=== PATIENT | female | born 1960 | race American Indian/Alaskan Native ===

== ENCOUNTER 2017-11-06 09:29 | Day surgery (SDC) | payer OTHER, MEDICAID ==
[2017-11-06] MEDS ORDERED: LR 1,000 ML IV ONE (09:48)
[2017-11-06] MEDS ORDERED: LIDOCAINE 1% 2 ML INJ ID PRN (09:48)
[2017-11-06] MEDS ORDERED: fentaNYL 100 MCG/2 ML INJ IVP PRN (10:28)
[2017-11-06] MEDS ORDERED: ALBUTEROL 3 ML DEYVIAL IH PRN (10:28)
[2017-11-06] MEDS ORDERED: ONDANSETRON 4 MG/2 ML VIAL IVP PRN (10:28)
[2017-11-06] MEDS ORDERED: NALOXONE HCL 0.4 MG/ML INJ IVP PRN (10:28)
--- NOTE | 2017-11-06 10:28 | PDANEPAE ---
ANE History of Present Illness here for EGD ANE Past Medical History - Cardiovascular History Hx Hypertension: No Hx Arrhythmias: No Hx Chest Pain: No Hx Coronary Artery / Peripheral Vascular Disease: No Hx CHF / Valvular Disease: No Hx Palpitations: No Cardiovascular History Comment: BP runs low 115/65 average - Pulmonary History Hx COPD: No Hx Asthma/Reactive Airway Disease: No Hx Recent Upper Respiratory Infection: No Hx Oxygen in Use at Home: No Hx Sleep Apnea: No Sleep Apnea Screening Result - Last Documented: Negative - Neurologic History Hx Cerebrovascular Accident: No Hx Seizures: No Hx Dementia: No - Endocrine History Hx Diabetes: Yes Endocrine History Comment: IDDM - Renal History Hx Renal Disorders: No - Liver History Hx Hepatic Disorders: Yes Hepatic History Comment: LIVER TRANSPLANT 06/14/11. FOR (SAL) - Neurological & Psychiatric Hx Hx Neurological and Psychiatric Disorders: No - Cancer History Hx Cancer: No - Congenital Disorder History Hx Congenital Disorders: No - GI History Hx Gastrointestinal Disorders: Yes Gastrointestinal History Comment: REFLUX, PYLORIC STENOSIS,GASTROPARESIS - Other Health History Other Health History: GLAUCOMA - Chronic Pain History Chronic Pain: Yes (ABD PAIN) - Surgical History Prior Surgeries: EGD ANE Review of Systems Review of systems is: negative Review of Systems: - Exercise capacity METS (RN): 4 METS ANE Patient History - Allergies Allergies/Adverse Reactions: octreotide [From Sandostatin] Allergy (Verified 11/06/17 10:00) Other-Enter Comments - Home Medications Home medications: home medication list seen and reviewed Home Medications: Bydureon Pen 11/05/17 [Last Taken 11/04/17] Latanoprost 11/05/17 [Last Taken 11/05/17 20:00] Pantoprazole Sodium 11/05/17 [Last Taken 11/05/17 08:00] Ranitidine HCl 11/05/17 [Last Taken 11/05/17 20:00] Synthroid 11/05/17 [Last Taken 11/05/17 08:00] Tacrolimus 11/05/17 [Last Taken 11/05/17 20:00] Tresiba Flextouch U-100 11/05/17 [Last Taken 11/05/17 08:00] Zofran 11/05/17 [Last Taken 11/05/17 20:00] - NPO status NPO Status: no food or drink >8 hours - Smoking Hx Smoking Status: Never smoked - Family Anes Hx Family Hx Anesthesia Complications: none ANE Labs/Vital Signs - Labs Result Diagrams: 11/06/17 10:00 - Vital Signs Vital Signs: reviewed preoperatively; see RN documention for details Blood Pressure: 126/74 Heart Rate: 101 Respiratory Rate: 16 O2 Sat (%): 96 Height: 172.72 cm Weight: 86.183 kg
[2017-11-06] MEDS ORDERED: PROPOFOL/EMULSION 500 MG/50 ML BOTTLE IV ONE (10:50)
--- NOTE | 2017-11-06 10:54 | PDANEPAE ---
ANE History of Present Illness here for egd ANE Past Medical History - Cardiovascular History Hx Hypertension: No Hx Arrhythmias: No Hx Chest Pain: No Hx Coronary Artery / Peripheral Vascular Disease: No Hx CHF / Valvular Disease: No Hx Palpitations: No Cardiovascular History Comment: BP runs low 115/65 average - Pulmonary History Hx COPD: No Hx Asthma/Reactive Airway Disease: No Hx Recent Upper Respiratory Infection: No Hx Oxygen in Use at Home: No Hx Sleep Apnea: No Sleep Apnea Screening Result - Last Documented: Negative - Neurologic History Hx Cerebrovascular Accident: No Hx Seizures: No Hx Dementia: No - Endocrine History Hx Diabetes: Yes Endocrine History Comment: IDDM - Renal History Hx Renal Disorders: No - Liver History Hx Hepatic Disorders: Yes Hepatic History Comment: LIVER TRANSPLANT 06/14/11. FOR (SAL) - Neurological & Psychiatric Hx Hx Neurological and Psychiatric Disorders: No - Cancer History Hx Cancer: No - Congenital Disorder History Hx Congenital Disorders: No - GI History Hx Gastrointestinal Disorders: Yes Gastrointestinal History Comment: REFLUX, PYLORIC STENOSIS,GASTROPARESIS - Other Health History Other Health History: GLAUCOMA - Chronic Pain History Chronic Pain: Yes (ABD PAIN) - Surgical History Prior Surgeries: EGD ANE Review of Systems Review of systems is: negative Review of Systems: - Exercise capacity Exercise capacity: >=4 METS METS (RN): 4 METS ANE Patient History - Allergies Allergies/Adverse Reactions: octreotide [From Sandostatin] Allergy (Verified 11/06/17 10:00) Other-Enter Comments - Home Medications Home medications: home medication list seen and reviewed Home Medications: Bydureon Pen 11/05/17 [Last Taken 11/04/17] Latanoprost 11/05/17 [Last Taken 11/05/17 20:00] Pantoprazole Sodium 11/05/17 [Last Taken 11/05/17 08:00] Ranitidine HCl 11/05/17 [Last Taken 11/05/17 20:00] Synthroid 11/05/17 [Last Taken 11/05/17 08:00] Tacrolimus 11/05/17 [Last Taken 11/05/17 20:00] Tresiba Flextouch U-100 11/05/17 [Last Taken 11/05/17 08:00] Zofran 11/05/17 [Last Taken 11/05/17 20:00] - Smoking Hx Smoking Status: Never smoked - Family Anes Hx Family Hx Anesthesia Complications: none ANE Labs/Vital Signs - Labs Result Diagrams: 11/06/17 10:00 - Vital Signs Vital Signs: reviewed preoperatively; see RN documention for details Blood Pressure: 126/74 Heart Rate: 101 Respiratory Rate: 16 O2 Sat (%): 96 Height: 172.72 cm Weight: 86.183 kg ANE Physical Exam - Airway Neck exam: FROM Mallampati Score: Class 1 - Pulmonary Pulmonary: no respiratory distress - Cardiovascular Cardiovascular: regular rate and rhythym - ASA Status ASA Status: II ANE Anesthesia Plan Anesthesia Plan: general endotracheal anesthesia
--- NOTE | 2017-11-06 12:08 | GIREPORT ---
[facility] - Endoscopy Department Patient Name: Elma Padilla Procedure Date: 11/06/2017 10:50 AM Patient Type: Outpatient Attending MD/ ER Physician: Kenroy Moreau Procedure: Upper GI endoscopy Indications: Pyloric stenosis, For therapy of pyloric stenosis Providers: Mat Granados MD Referring MD: Valeriy Evangelista MD Medicines: General Anesthesia Complications: No immediate complications. Estimated blood loss: Minimal. Description of Procedure: After obtaining informed consent, the endoscope was passed under direct vision. Throughout the procedure, the patient's blood pressure, pulse, and oxygen saturations were monitored continuously. The Endoscope was intro duced through the mouth, and advanced to the third part of duodenum. The uppe r GI endoscopy was accomplished without difficulty. The patient tolerated th e procedure well. Findings: The examined esophagus was normal. A few diminutive sessile polyps with no bleeding and no stigmata of rec ent bleeding were found in the gastric fundus. The polyp was removed with a cold biopsy forceps. Polyp resection was incomplete. The resected tissue was retrieved. Estimated blood loss was minimal. A benign-appearing, intrinsic moderate stenosis was found at the pyloru s. This was traversed. A TTS dilator was passed through the scope. Dilatio n with a 12-13.5-15 mm, a 15-16.5-18 mm and an 18-19-20 mm pyloric balloo n dilator was performed. The dilation site was examined and showed comple te resolution of luminal narrowing. Estimated blood loss was minimal. The examined duodenum was normal. The exam was otherwise without abnormality. Estimated Blood Loss: Estimated blood loss was minimal. Post Op Diagnosis: - Normal esophagus. - A few gastric polyps. Incomplete resection. Resected tissue retrieved . - Gastric stenosis was found at the pylorus. Dilated. - Normal examined duodenum. - The examination was otherwise normal. Recommendation: - Await pathology results. - My office will call with the pathology result with 5-7 days. If you h ave not heard from my office by 06-06, do not assume the pathology is karlos l, please call [phone] to get the pathology results. - Repeat upper endoscopy in 4 weeks for retreatment. - Resume regular diet. - Continue present medications. - Use Protonix (pantoprazole) 40 mg PO daily. - Use Zantac (ranitidine) 300 mg PO at bedtime. - Discharge patient to home (ambulatory). - Return to primary care physician as previously scheduled. - Return to endoscopist in 6 weeks. - Thank you for allowing me to help in your patient's care. Do not hesi huizar to call with any questions. Attending Participation: I personally performed the entire procedure. Roberta Rivero M.D Mat Granados MD 11/06/2017 12:08:12 PM This report has been signed electronicallyMathew MD Roberta Number of Addenda: 0 Note Initiated On: 11/06/2017 10:50 AM [email or web address]
[2017-11-06 12:31] VITALS: BP 121/78
--- NOTE | 2017-11-06 12:49 | POSTANESTH ---
Post Anesthetic Evaluation Cardiovascular Status: Normal, Stable Respiratory Status: Normal, Stable Level of Consciousness/Mental Status: Can Participate in Eval Pain Control: Adequate, Prn Tx Ordered Nausea/Vomiting Control: Adequate, Prn Tx Ordered Complications Possibly Related to Anesthesia: None Noted
== END 2017-11-06 14:15 | disposition home or self-care (01) ==
LOC: FSGY 09:29
PROVIDERS: ATTEND Internal Medicine Gastroenterology
DX: K31.1 Adult hypertrophic pyloric stenosis (principal); K31.7 Polyp of stomach and duodenum
CPT/HCPCS: 43239; 43245; C1726; J2704

== ENCOUNTER 2017-11-15 18:27 | Observation (INO) | payer OTHER, MEDICAID ==
[2017-11-15] MEDS ORDERED: ONDANSETRON 4 MG/2 ML VIAL IVP ONE (19:15)
[2017-11-15] MEDS ORDERED: IBUPROFEN 800 MG TAB PO ONE (19:15)
[2017-11-15 19:23] LABS: PLATELET COUNT 330 10^3/uL (150-400)
--- NOTE | 2017-11-15 19:46 | EDPHY ---
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 She is on tacrolimus and other immunosuppressant drugs. She has been feeling somewhat poorly for the last 2 days and today developed fever and chills. After consulting with her transplant team she came to the emergency department, as recommended. She reports a mild headache. She denies cough, shortness of breath, chest pain, abdominal pain, diarrhea, dysuria, joint or muscle pain. She has chronic nausea with a history of gastroparesis and pyloric stenosis. Approximately 10 days ago she underwent dilatation of pylorus. REVIEW OF SYSTEMS: A ten point review of systems was performed and is negative with the exception of the items mentioned in the HPI. Past medical history: 1. Liver transplant/SAL 2. Pyloric stenosis 3. Gastroparesis 4. Incisional hernia Past surgical history: Liver transplant, tubal ligation Social history: The she is . She does not use tobacco or alcohol. General Appearance: Alert. Vital signs reviewed. Temperature 38.5 degrees at triage. Blood pressure 136/92. Heart rate 123. Eyes: Pupils equal and round, no conjunctival injection, no discharge. Anicteric. ENT, Mouth: Mucous membranes are moist, no oropharyngeal erythema or edema. Neck: No lymphadenopathy, supple. Respiratory: Lungs are clear to auscultation; no wheezes, rales, or rhonchi. Cardiovascular: Regular rate and rhythm; no murmur, rub, or gallop. Gastrointestinal: Abdomen is soft and nontender, no masses or organomegaly, bowel sounds normal. Incisional hernia, reducible. Skin: Warm and dry, no rashes on exposed skin, normal color. Back: Nontender to palpation over the thoracolumbar spine. No CVAT. Extremities: No lower extremity edema, no calf tenderness or swelling. Neurological: Alert and oriented. Moving all four extremities easily and equally. Cranial nerves II through XII are examined and are intact (visual acuity not tested). Strength is 5 over 5 bilaterally with testing of all major motor groups. Sensation is intact to light touch over all 4 extremities. Psychiatric: Normal affect. - Personal History Current Tetanus/Diphtheria Vaccine: Yes - Medical/Surgical History Hx Asthma: No Hx Chronic Respiratory Disease: No Hx Diabetes: Yes Hx Cardiac Disease: No Hx Renal Disease: No Hx Cirrhosis: No Hx Alcoholism: No Hx HIV/AIDS: No Other PMH: liver transplant /pyloric stenosis/glaucoma/ gastroparesis - Social History Smoking Status: Never smoked Constitutional: Initial Vital Signs Temperature (C) 38.5 C H 11/15/17 18:31 Heart Rate 123 H 11/15/17 18:31 Respiratory Rate 22 H 11/15/17 18:31 Blood Pressure 136/92 H 11/15/17 18:31 O2 Sat (%) 96 11/15/17 18:31 O2 Delivery Mode Room Air Allergies/Adverse Reactions: octreotide [From Sandostatin] Allergy (Verified 11/15/17 18:30) Other-Enter Comments Home Medications: Medication Instructions Recorded Canagliflozin [Invokana] 300 mg PO DAILY 11/15/17 Exenatide Microspheres [Bydureon 2 mg SQ Q7D 11/15/17 Pen] Insulin Degludec [Tresiba 60 unit SQ DAILY 11/15/17 Flextouch U-100] Latanoprost 0.005% [Xalatan 0.005% 1 drops EACHEYE HS 11/15/17 (*)] Levothyroxine [Synthroid 50 mcg 50 mcg PO DAILY06 11/15/17 (*)] Ondansetron Odt [Zofran Odt 4 mg 4 mg PO Q6 11/15/17 (*)] Pantoprazole Sodium [Protonix 40mg 40 mg PO DAILY 11/15/17 (*)] Ranitidine HCl 300 mg PO HS 11/15/17 Tacrolimus [Prograf] 1 mg PO BID 11/15/17 Medical Decision Making ED Course/Re-evaluation: 57-year-old immunocompromised female, status post liver transplant in 2010. She presents with fever and chills. On presentation she meets screening criteria for sepsis. Her lactic acid is 1.7, she does not have severe sepsis. She received 2 L of IV fluid in the emergency department with a decrease in her heart rate to 100. She was given ibuprofen and defervesced. White blood cell count is elevated, over 13,000. She has not been hypotensive. She does not have hypoxia, tachypnea, cough, or shortness of breath. I note that a chest x-ray was not obtained. Her lungs are clear to auscultation. She appears to have a urinary tract infection with leukocyte esterase, 15-25 white blood cells, and trace bacteria on her urinalysis. Urine culture has been ordered. No CVA tenderness. Blood cultures have been done. She was given 1 g IV ceftriaxone in the emergency department. She underwent serial evaluations while in the emergency department. She did not deteriorate. She remained alert and appropriate. Differential Diagnosis: Fever in adults including but not limited to pneumonia, urinary tract infection , viral syndrome, and influenza. - Data Points Laboratory Results: Laboratory Results 11/15/17 18:55 11/15/17 18:55 11/15/17 11/15/17 11/15/17 20:10 20:00 18:55 WBC RBC Hgb Hct MCV MCH MCHC RDW Plt Count MPV Neut % (Auto) Lymph % (Auto) [place] % (Auto) Eos % (Auto) Baso % (Auto) Nucleat RBC Rel Count Absolute Neuts (auto) Absolute Lymphs (auto) Absolute Monos (auto) Absolute Eos (auto) Absolute Basos (auto) Absolute Nucleated RBC Immature Gran % Immature Gran # VBG Lactic Acid 1.7 mmol/L mmol/L (0.7-2.1) Sodium 140 mEq/L mEq/L (135-145) Potassium 4.2 mEq/L mEq/L (3.3-5.0) Chloride 103 mEq/L mEq/L (97-110) Carbon Dioxide 23 mEq/l mEq/l (22-31) Anion Gap 14 mEq/L mEq/L (8-16) BUN 14 mg/dL mg/dL (7-23) Creatinine 1.1 mg/dL H mg/dL (0.6-1.0) Estimated GFR 51 Glucose 101 mg/dL H mg/dL (70-100) Calcium 9.0 mg/dL mg/dL (8.5-10.4) Total Bilirubin 0.9 mg/dL mg/dL (0.1-1.4) Conjugated Bilirubin 0.5 mg/dL mg/dL (0.0-0.5) Unconjugated Bilirubin 0.4 mg/dL mg/dL (0.0-1.1) AST 19 IU/L IU/L (14-46) ALT 37 IU/L IU/L (9-52) Alkaline Phosphatase 88 IU/L IU/L (38-126) Total Protein 7.5 g/dL g/dL (6.3-8.2) Albumin 4.0 g/dL g/dL (3.5-5.0) Lipase 60 IU/L IU/L (23-300) Urine Color YELLOW Urine Appearance HAZY Urine pH 6.0 (5.0-7.5) Ur Specific [place] 1.014 (1.002-1.030) Urine Protein NEGATIVE (NEGATIVE) Urine Ketones NEGATIVE (NEGATIVE) Urine Blood NEGATIVE (NEGATIVE) Urine Nitrate NEGATIVE (NEGATIVE) Urine Bilirubin NEGATIVE (NEGATIVE) Urine Urobilinogen NEGATIVE EU EU (0.2-1.0) Ur Leukocyte Esterase 3+ H (NEGATIVE) Urine RBC 5-10 /hpf H /hpf (0-3) Urine WBC 15-25 /hpf H /hpf (0-3) Ur Epithelial Cells 1+ /lpf /lpf (NONE-1+) Urine Bacteria TRACE /hpf H /hpf (NONE SEEN) Urine Mucus TRACE /lpf /lpf (NONE-1+) Urine Glucose 3+ H (NEGATIVE) 11/15/17 18:55 WBC 13.75 10^3/uL H 10^3/uL (3.80-9.50) RBC 4.85 10^6/uL 10^6/uL (4.18-5.33) Hgb 14.8 g/dL g/dL (12.6-16.3) Hct 44.0 % % (38.0-47.0) MCV 90.7 fL fL (81.5-99.8) MCH 30.5 pg pg (27.9-34.1) MCHC 33.6 g/dL g/dL (32.4-36.7) RDW 14.0 % % (11.5-15.2) Plt Count 330 10^3/uL 10^3/uL (150-400) MPV 8.7 fL fL (8.7-11.7) Neut % (Auto) 83.2 % H % (39.3-74.2) Lymph % (Auto) 10.0 % L % (15.0-45.0) [place] % (Auto) 4.9 % % (4.5-13.0) Eos % (Auto) 1.2 % % (0.6-7.6) Baso % (Auto) 0.2 % L % (0.3-1.7) Nucleat RBC Rel Count 0.0 % % (0.0-0.2) Absolute Neuts (auto) 11.43 10^3/uL H 10^3/uL (1.70-6.50) Absolute Lymphs (auto) 1.38 10^3/uL 10^3/uL (1.00-3.00) Absolute Monos (auto) 0.68 10^3/uL 10^3/uL (0.30-0.80) Absolute Eos (auto) 0.16 10^3/uL 10^3/uL (0.03-0.40) Absolute Basos (auto) 0.03 10^3/uL 10^3/uL (0.02-0.10) Absolute Nucleated RBC 0.00 10^3/uL 10^3/uL (0-0.01) Immature Gran % 0.5 % % (0.0-1.1) Immature Gran # 0.07 10^3/uL 10^3/uL (0.00-0.10) VBG Lactic Acid Sodium Potassium Chloride Carbon Dioxide Anion Gap BUN Creatinine Estimated GFR Glucose Calcium Total Bilirubin Conjugated Bilirubin Unconjugated Bilirubin AST ALT Alkaline Phosphatase Total Protein Albumin Lipase Urine Color Urine Appearance Urine pH Ur Specific [place] Urine Protein Urine Ketones Urine Blood Urine Nitrate Urine Bilirubin Urine Urobilinogen Ur Leukocyte Esterase Urine RBC Urine WBC Ur Epithelial Cells Urine Bacteria Urine Mucus Urine Glucose Medications Given: Discontinued Medications Ceftriaxone Sodium/Dextrose (Rocephin 1 Gm (Premix)) 50 mls @ 100 mls/hr IV EDNOW ONE PRN Reason: Protocol Stop: 11/15/17 21:28 Last Admin: 11/15/17 21:19 Dose: 50 mls Ibuprofen (Motrin) 800 mg PO EDNOW ONE Stop: 11/15/17 19:16 Last Admin: 11/15/17 19:20 Dose: 800 mg Ondansetron HCl (Zofran) 4 mg IVP EDNOW ONE Stop: 11/15/17 19:16 Last Admin: 11/15/17 19:20 Dose: 4 mg Departure - Departure Disposition: [facility] Acute Clinical Impression: Urinary tract infection Qualifiers: Urinary tract infection type: acute cystitis Hematuria presence: with hematuria Qualified Code(s): N30.01 - Acute cystitis with hematuria Condition: Fair
[2017-11-15] MEDS ORDERED: ONDANSETRON 4 MG/2 ML VIAL IVP PRN (22:14)
[2017-11-15] MEDS ORDERED: ONDANSETRON DISINTEGRATING 4 MG TAB PO PRN (22:14)
[2017-11-15] MEDS ORDERED: ACETAMINOPHEN 500 MG TAB PO PRN (22:14)
[2017-11-15] MEDS ORDERED: LATANOPROST 0.005% 2.5 ML OPHT DROPS EACHEYE SCH (23:15)
[2017-11-15] MEDS: TACROLIMUS 1 MG CAP PO SCH (23:44)
[2017-11-15] MEDS ORDERED: FAMOTIDINE 20 MG TAB PO SCH (23:45)
--- NOTE | 2017-11-16 01:36 | PDGENHP ---
History and Physical - Chief Complaint Fever - History of Present Illness 57 yo F w/ hx of liver failure s/p transplant and DM presents with fever. Patient has had fatigue for 2-3 days followed by fever and chills on the day of admission. She has also noticed nasal congestion; denies other localizing symptoms including all urinary findings. Of note, her daughter and granddaughter have both been ill with viral respiratory illnesses over the last few weeks. In the ED her CXR showed likely bronchitis and her UA was notable for pyuria. She is being admitted for observation noting immunosuppressed status. History Information - Allergies/Home Medication List Allergies/Adverse Reactions: octreotide [From Sandostatin] Allergy (Verified 11/15/17 18:30) Other-Enter Comments Home Medications: Canagliflozin [Invokana] 300 mg PO DAILY 11/15/17 [Last Taken 11/15/17] Exenatide Microspheres [Bydureon Pen] 2 mg SQ Q7D 11/15/17 [Last Taken 11/12/17] Insulin Degludec [Tresiba Flextouch U-100] 60 unit SQ DAILY 11/15/17 [Last Taken 11/15/17] Latanoprost 0.005% [Xalatan 0.005% (*)] 1 drops EACHEYE HS 11/15/17 [Last Taken 11/14/17] Levothyroxine [Synthroid 50 mcg (*)] 50 mcg PO DAILY06 11/15/17 [Last Taken ] Ondansetron Odt [Zofran Odt 4 mg (*)] 4 mg PO Q6 11/15/17 [Last Taken 11/15/17 17:00] Pantoprazole Sodium [Protonix 40mg (*)] 40 mg PO DAILY 11/15/17 [Last Taken ] Ranitidine HCl 300 mg PO HS 11/15/17 [Last Taken 11/14/17] Tacrolimus [Prograf] 1 mg PO BID 11/15/17 [Last Taken 11/15/17] I have personally reviewed and updated: family history, medical history - Past Medical History diabetes type 2 Additional medical history: 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 GERD. Gastroparesis. Hypothyroidism - Surgical History Additional surgical history: Liver transplant - Family History Additional family history: Daughter has ETOH cirrhosis - Social History Smoking Status: Never smoked Review of Systems Review of Systems: ROS: 10pt was reviewed & negative except for what was stated in HPI & below Physical Exam Physical Exam: Temp Pulse Resp BP Pulse Ox 36.8 C 88 16 101/56 L 94 11/16/17 00:32 11/16/17 00:32 11/16/17 00:32 11/16/17 00:32 11/16/17 00:32 Constitutional: no apparent distress, not in pain Eyes: PERRL, EOMI Ears, Nose, Mouth, Throat: moist mucous membranes, no oral mucosal ulcers Cardiovascular: regular rate and rhythym, no murmur, rub, or gallop Respiratory: no respiratory distress, no rales or rhonchi Gastrointestinal: normoactive bowel sounds, soft, non-tender abdomen Skin: warm, normal color Musculoskeletal: full muscle strength, no muscle tenderness Neurologic: AAOx3, CN II-XII Intact Psychiatric: interacting appropriately, not anxious Lab Data & Imaging Review 11/15/17 18:55 11/15/17 18:55 WBC 13.75 10^3/uL (3.80-9.50) H 11/15/17 18:55 RBC 4.85 10^6/uL (4.18-5.33) 11/15/17 18:55 Hgb 14.8 g/dL (12.6-16.3) 11/15/17 18:55 Hct 44.0 % (38.0-47.0) 11/15/17 18:55 MCV 90.7 fL (81.5-99.8) 11/15/17 18:55 MCH 30.5 pg (27.9-34.1) 11/15/17 18:55 MCHC 33.6 g/dL (32.4-36.7) 11/15/17 18:55 RDW 14.0 % (11.5-15.2) 11/15/17 18:55 Plt Count 330 10^3/uL (150-400) 11/15/17 18:55 MPV 8.7 fL (8.7-11.7) 11/15/17 18:55 Neut % (Auto) 83.2 % (39.3-74.2) H 11/15/17 18:55 Lymph % (Auto) 10.0 % (15.0-45.0) L 11/15/17 18:55 [place] % (Auto) 4.9 % (4.5-13.0) 11/15/17 18:55 Eos % (Auto) 1.2 % (0.6-7.6) 11/15/17 18:55 Baso % (Auto) 0.2 % (0.3-1.7) L 11/15/17 18:55 Nucleat RBC Rel Count 0.0 % (0.0-0.2) 11/15/17 18:55 Absolute Neuts (auto) 11.43 10^3/uL (1.70-6.50) H 11/15/17 18:55 Absolute Lymphs (auto) 1.38 10^3/uL (1.00-3.00) 11/15/17 18:55 Absolute Monos (auto) 0.68 10^3/uL (0.30-0.80) 11/15/17 18:55 Absolute Eos (auto) 0.16 10^3/uL (0.03-0.40) 11/15/17 18:55 Absolute Basos (auto) 0.03 10^3/uL (0.02-0.10) 11/15/17 18:55 Absolute Nucleated RBC 0.00 10^3/uL (0-0.01) 11/15/17 18:55 Immature Gran % 0.5 % (0.0-1.1) 11/15/17 18:55 Immature Gran # 0.07 10^3/uL (0.00-0.10) 11/15/17 18:55 VBG Lactic Acid 1.7 mmol/L (0.7-2.1) 11/15/17 20:10 Sodium 140 mEq/L (135-145) 11/15/17 18:55 Potassium 4.2 mEq/L (3.3-5.0) 11/15/17 18:55 Chloride 103 mEq/L (97-110) 11/15/17 18:55 Carbon Dioxide 23 mEq/l (22-31) 11/15/17 18:55 Anion Gap 14 mEq/L (8-16) 11/15/17 18:55 BUN 14 mg/dL (7-23) 11/15/17 18:55 Creatinine 1.1 mg/dL (0.6-1.0) H 11/15/17 18:55 Estimated GFR 51 11/15/17 18:55 Glucose 101 mg/dL (70-100) H 11/15/17 18:55 Calcium 9.0 mg/dL (8.5-10.4) 11/15/17 18:55 Total Bilirubin 0.9 mg/dL (0.1-1.4) 11/15/17 18:55 Conjugated Bilirubin 0.5 mg/dL (0.0-0.5) 11/15/17 18:55 Unconjugated Bilirubin 0.4 mg/dL (0.0-1.1) 11/15/17 18:55 AST 19 IU/L (14-46) 11/15/17 18:55 ALT 37 IU/L (9-52) 11/15/17 18:55 Alkaline Phosphatase 88 IU/L (38-126) 11/15/17 18:55 Total Protein 7.5 g/dL (6.3-8.2) 11/15/17 18:55 Albumin 4.0 g/dL (3.5-5.0) 11/15/17 18:55 Lipase 60 IU/L (23-300) 11/15/17 18:55 Procalcitonin 0.09 ng/mL (0.02-0.10) 11/15/17 23:26 Urine Color YELLOW 11/15/17 20:00 Urine Appearance HAZY 11/15/17 20:00 Urine pH 6.0 (5.0-7.5) 11/15/17 20:00 Ur Specific [place] 1.014 (1.002-1.030) 11/15/17 20:00 Urine Protein NEGATIVE (NEGATIVE) 11/15/17 20:00 Urine Ketones NEGATIVE (NEGATIVE) 11/15/17 20:00 Urine Blood NEGATIVE (NEGATIVE) 11/15/17 20:00 Urine Nitrate NEGATIVE (NEGATIVE) 11/15/17 20:00 Urine Bilirubin NEGATIVE (NEGATIVE) 11/15/17 20:00 Urine Urobilinogen NEGATIVE EU (0.2-1.0) 11/15/17 20:00 Ur Leukocyte Esterase 3+ (NEGATIVE) H 11/15/17 20:00 Urine RBC 5-10 /hpf (0-3) H 11/15/17 20:00 Urine WBC 15-25 /hpf (0-3) H 11/15/17 20:00 Ur Epithelial Cells 1+ /lpf (NONE-1+) 11/15/17 20:00 Urine Bacteria TRACE /hpf (NONE SEEN) H 11/15/17 20:00 Urine Mucus TRACE /lpf (NONE-1+) 11/15/17 20:00 Urine Glucose 3+ (NEGATIVE) H 11/15/17 20:00 Imaging Review: Imaging Impressions Chest X-Ray 11/15/17 21:50 Impression: 1. Mild bronchitis/airways disease. 2. No definite focal pneumonia. Visualized and Interpreted Chest x-ray results: Yes Chest X-Ray results: no infiltrate Assessment & Plan Assessment: 57 yo F w/ hx of liver transplant presents with a fever. Plan: 1. Fever - Most likely this represents viral URI noting CXR w/ bronchitis and multiple sick contacts. UA is mildly infectious appearing but she denies symptoms of this. 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 - Continue tacrolimus 3. IDDM - Takes insulin degludec 60 units q AM as well as Invokana. - Will continue home regimen 4. GERD - Continue H2RB 5. Hypothyroid - On LTX Diet - Regular Code - Full Ppx - LMWH Dispo - Admit under observation status, case discussed with Dr. Turner
[2017-11-16 05:27] LABS: PLATELET COUNT 263 10^3/uL (150-400)
[2017-11-16] MEDS ORDERED: LEVOTHYROXINE 50 MCG TAB PO SCH (06:00)
--- NOTE | 2017-11-16 08:45 | HOSPPROG ---
Hospitalist Progress Note Assessment/Plan: 7 yo F w/ hx of liver transplant presents with a fever. Plan: 1. Fever - Most likely this represents viral URI noting CXR w/ bronchitis and multiple sick contacts. UA is mildly infectious appearing but she denies symptoms of this. 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 - Continue tacrolimus 3. IDDM - Takes insulin degludec 60 units q AM as well as Invokana. - Will continue home regimen 4. GERD - Continue H2RB 5. Hypothyroid - On LTX Diet - Regular Code - Full Ppx - LMWH Dispo - Admit under observation status, case discussed with Dr. Turner Objective: Vital Signs Temp Pulse Resp BP Pulse Ox 98.7 F 76 16 109/73 95 11/16/17 07:34 11/16/17 07:34 11/16/17 07:34 11/16/17 07:34 11/16/17 07:34 Microbiology 11/15/17 23:45 Respiratory Panel (PCR) - Final Nasal, Sinus - Swab No Organism Detected Laboratory Results 11/16/17 04:15 11/16/17 04:15 ICD10 Worksheet Patient Problems: Problems Problem Status Onset Urinary tract infection Acute
[2017-11-16] MEDS ORDERED: PANTOPRAZOLE SODIUM 40 MG TAB PO SCH (09:00)
[2017-11-16] MEDS ORDERED: ENOXAPARIN 40 MG/0.4 ML SYR SC SCH (09:00)
[2017-11-16] MEDS: TACROLIMUS 1 MG CAP PO SCH (09:12)
[2017-11-16] MEDS: Insulin Degludec [Tresiba Flextouch U-100] 60 UNIT SQ SCH ×2 (09:12→09:17)
[2017-11-16] MEDS ORDERED: PNEUMOCOCCAL 0.5ML VACCINE VIAL IM ONE (10:59)
[2017-11-16 11:32] VITALS: BP 126/84
--- NOTE | 2017-11-16 15:31 | ASMTLACE ---
LACE Length of stay for Answers: Less than 1 day current admission Acuity / Level of Answers: No Care: Did the patient have an inpatient admission? Comorbidities - select Answers: Diabetes (uncontrolled or all that apply controlled) Moderate or severe liver or renal disease Other Notes: SAL cirrhosis, s/p luda er transplant # of Emergency department Answers: 1-2 visits in the last 6 months Score: 7 Date Signed: 11/16/2017 03:30 PM Electronically Signed By:Shey Cunningham RN
--- NOTE | 2017-11-16 15:36 | ASDISCHSUM ---
Discharge Information Plan Status:Home with No Needs Medically Cleared to Leave:11/16/2017 Discharge Date:11/16/2017 12:47 PM CM D/C Disposition:Home, Routine, Self-Care ADT D/C Disposition:Home, Routine, Self-Care Projected Discharge Date:11/16/2017 12:47 PM Transportation at D/C:Family Discharge Delay Reason: Follow-Up Date:11/16/2017 12:47 PM Discharge Slot:2 - 12:01 pm - 18:00 pm Final Diagnosis:Fever, URI, bronchitis, DM type 2, s/p liver transplant, liver failure sec to SAL c irrhosis, GERD, hypothyroid, gastroparesis Placement Information Patient Contact Information Contact Name:ANGELICA Relationship:Daughter Address: Work Phone: City: [facility] Phone: [facility]/[employer] Code: Email: Financial Information Financial Class:Medicare Primary Plan Desc:MEDICARE OUTPATIENT Primary Plan Number:[id number] Secondary Plan Desc:MEDICAID [place] Secondary Plan Number:[id number] Assessment Information LACE LACE Length of stay for Answers: Less than 1 day current admission Acuity / Level of Answers: No Care: Did the patient have an inpatient admission? Comorbidities - select Answers: Diabetes (uncontrolled or all that apply controlled) Moderate or severe liver or renal disease Other Notes: SAL cirrhosis, s/p luda er transplant # of Emergency department Answers: 1-2 visits in the last 6 months Score: 7 Date Signed: 11/16/2017 03:30 PM Electronically Signed By:Shey Cunningham RN [facility] Progress Note CM Note CM Note Notes: Pt admitted for fever, URI, possible bronchitis. History includes liver failure secondary to SAL cirrhosis with liver transplant, DM type 2, GERD, gastroparesis, hypothyroid. Pt lives alone; daughter involved in care. Pt to discharge home independently today with family support and no identified needs. No IM or QUEVEDO signed, admission <24 hrs. Pt to follow up as directed. CM available for any further issues or concerns. Discharge Plan: Home independently with family support Date Signed: 11/16/2017 03:34 PM Electronically Signed By:Shey Cunningham RN Intervention Information
--- NOTE | 2017-11-16 20:09 | GDS ---
[f rep st] DISCHARGE SUMMARY DISCHARGE DIAGNOSES: 1. Fever with unremarkable testing in this admission and resolution of fever at time of discharge. 2. History of liver transplant. 3. History of type 2 diabetes mellitus. 4. History of gastroesophageal reflux disease. 5. History of gastroparesis. 6. History of hypothyroidism. PROCEDURES: None. BRIEF HISTORY: Please see dictated H and P by Dr. Solomon for complete details. In brief, the p atkhurram is a 57-year-old female status post liver transplant and history of type 2 diabetes mellitus, who presented with a fever. She reports 2-3 days of fever and chills prior to admission. She had jolley d some sick contacts with her daughter and granddaughter who both had respiratory illnesses. Chest x -ray showed possible bronchitis and her UA had some pyuria. She was being admitted for im munosuppressed status. Her respiratory panel is negative. Her urine culture shows gram-negative mary lactose silk trimmer of 2 colony types with low counts. Her blood cultures are pending. Her white blo od cell count is only mildly elevated. Her VBG for lactic acid is low. Her procalcitonin is 0.09. PHYSICAL EXAM: VITAL SIGNS: On day of discharge, blood pressure 126/84, heart rate of 90, respirati ons 17, O2 saturation 96% on room air, temp of 98.6 degrees Fahrenheit. GENERAL: She is a pleasant female in no apparent distress. HEENT: Normocephalic, atraumatic. EYES: PERRL. HEART: Regular r ate and rhythm. SKIN: Warm and dry. PSYCH: Normal mood and affect. LABORATORY DATA: BMP with sodium 143, potassium 4.2, chloride 112, CO2 20, BUN 12, creatinine 1, glu cose 88. CBC with WBC 11.47, hemoglobin 12.1, hematocrit 37.2, platelet count of 263. UA with 3+ ur ine leukocyte esterase, trace bacteria. Results pending: Final results of preliminary urine culture and blood culture are pending. DISCHARGE MEDICATIONS: Please see med reconciliation. FOLLOWUP INSTRUCTIONS: Follow up with Dr. Evangelista, primary care, for results of recent testing. /[id number]/MODL
== END 2017-11-16 12:47 | disposition home or self-care (01) ==
LOC: F3N 22:45
PROVIDERS: ADMIT Internal Medicine; ATTEND Internal Medicine
DX: R50.9 Fever, unspecified (principal); E11.9 Type 2 diabetes mellitus without complications; K21.9 Gastro-esophageal reflux disease without esophagitis; K31.84 Gastroparesis; I10 Essential (primary) hypertension; Z94.4 Liver transplant status
CPT/HCPCS: 71046; 90732; G0009; G0378; J0696; J2405; J7507; 96374; J1650

== ENCOUNTER 2017-12-05 10:12 | Day surgery (SDC) | payer OTHER, MEDICAID ==
[2017-12-05] MEDS ORDERED: LR 1,000 ML IV ONE (10:31)
--- NOTE | 2017-12-05 12:13 | PDGENHP ---
History & Physical Chief Complaint: pyloric stenosis History of Present Illness: hx of acquired pyloric stenosis s/p egd and dilation Pertinent Past, Social, Family History: no tobacco. no alcohol. fhx - dad esophageal cancer, no colon cancer Relevant Physical Exam: A+Ox3. CTA. +BS, soft, non tender Cardiorespiratory Assessment: class 3
--- NOTE | 2017-12-05 12:21 | PDGENHP ---
History & Physical Chief Complaint: gastroparesis with aabdo pain and n/v History of Present Illness: hx gastropareis responded to BOTOX injexction pylorus Pertinent Past, Social, Family History: no tobacco. alcohol twice per month. Fhx - no cancer colo, aunt with Crohn's Relevant Physical Exam: A+Ox3. CTA. S1S2. +BS, soft epi tenderness Cardiorespiratory Assessment: class 2
--- NOTE | 2017-12-05 12:33 | PDANEPAE ---
ANE History of Present Illness h/o pyloric stenosis here for EGD ANE Past Medical History - Cardiovascular History Hx Hypertension: No Hx Arrhythmias: No Hx Chest Pain: No Hx Coronary Artery / Peripheral Vascular Disease: No Hx CHF / Valvular Disease: No Hx Palpitations: No Cardiovascular History Comment: BP runs low - Pulmonary History Hx COPD: No Hx Asthma/Reactive Airway Disease: No Hx Recent Upper Respiratory Infection: No Hx Oxygen in Use at Home: No Hx Sleep Apnea: No Sleep Apnea Screening Result - Last Documented: Negative - Neurologic History Hx Cerebrovascular Accident: No Hx Seizures: No Hx Dementia: No - Endocrine History Hx Diabetes: Yes Endocrine History Comment: IDDM - Renal History Hx Renal Disorders: Yes Renal History Comment: UTI 10/2017 - Liver History Hx Hepatic Disorders: Yes Hepatic History Comment: LIVER TRANSPLANT 06/14/11. FOR (SAL) POST IDDM - Neurological & Psychiatric Hx Hx Neurological and Psychiatric Disorders: No - Cancer History Hx Cancer: No - Congenital Disorder History Hx Congenital Disorders: No - GI History Hx Gastrointestinal Disorders: Yes Gastrointestinal History Comment: REFLUX, PYLORIC STENOSIS,GASTROPARESIS - Other Health History Other Health History: GLAUCOMA - Chronic Pain History Chronic Pain: Yes (ABD PAIN) - Surgical History Prior Surgeries: EGD WITH DILATION AND BX 11/06/17. LIVER TRANSPLANT 2010 FOR SAL. EGD ANE Review of Systems Review of Systems: - Exercise capacity Exercise capacity: >=4 METS ANE Patient History - Allergies Allergies/Adverse Reactions: octreotide [From Sandostatin] Allergy (Verified 11/15/17 18:30) Other-Enter Comments - Home Medications Home Medications: Canagliflozin [Invokana] 300 mg PO DAILY 11/15/17 [Last Taken 11/15/17] Exenatide Microspheres [Bydureon Pen] 2 mg SQ Q7D 11/15/17 [Last Taken 12/02/17] Insulin Degludec [Tresiba Flextouch U-100] 60 unit SQ DAILY 11/15/17 [Last Taken 12/04/17] Latanoprost 0.005% [Xalatan 0.005% (*)] 1 drops EACHEYE HS 11/15/17 [Last Taken 12/04/17] Levothyroxine [Synthroid 50 mcg (*)] 50 mcg PO DAILY06 11/15/17 [Last Taken ] Ondansetron Odt [Zofran Odt 4 mg (*)] 4 mg PO Q6 11/15/17 [Last Taken 1 Week Ago ~11/28/17] Pantoprazole Sodium [Protonix 40mg (*)] 40 mg PO DAILY 11/15/17 [Last Taken ] Ranitidine HCl 300 mg PO HS 11/15/17 [Last Taken 12/04/17] Tacrolimus [Prograf] 1 mg PO BID 11/15/17 [Last Taken 12/05/17] - NPO status NPO Since - Liquids (Date): 12/05/17 NPO Since - Liquids (Time): 07:00 NPO Since - Solids (Date): 12/04/17 NPO Since - Solids (Time): 12:00 - Anes Hx Anes Hx: no prior problems - Smoking Hx Smoking Status: Never smoked - Alcohol Use Alcohol Use: None - Family Anes Hx Family Anes Hx: none Family Hx Anesthesia Complications: none ANE Labs/Vital Signs - Vital Signs Blood Pressure: 98/75 Heart Rate: 101 Respiratory Rate: 14 O2 Sat (%): 98 Height: 172.72 cm Weight: 84.822 kg ANE Physical Exam - Airway Neck exam: FROM Mallampati Score: Class 2 Mouth exam: normal dental/mouth exam - Pulmonary Pulmonary: no respiratory distress, clear to auscultation - Cardiovascular Cardiovascular: regular rate and rhythym, no murmur, rub, or gallop - ASA Status ASA Status: III ANE Anesthesia Plan Anesthesia Plan: GA with mask
[2017-12-05] MEDS ORDERED: PROPOFOL/EMULSION 500 MG/50 ML BOTTLE IV ONE (12:37)
[2017-12-05] MEDS ORDERED: NALOXONE HCL 0.4 MG/ML INJ IVP PRN (13:09)
[2017-12-05] MEDS ORDERED: fentaNYL 100 MCG/2 ML INJ IVP PRN (13:09)
[2017-12-05] MEDS ORDERED: ONDANSETRON 4 MG/2 ML VIAL IVP PRN (13:09)
--- NOTE | 2017-12-05 13:14 | GIREPORT ---
[facility] Surgical Services - Endoscopy Department Patient Name: Elma Padilla Procedure Date: 12/05/2017 12:26 PM Patient Type: Outpatient Attending MD/ ER Physician: Kenroy Moreau Procedure: Upper GI endoscopy Indications: Follow-up of pyloric stenosis, For therapy of pyloric stenosis Providers: Mat Granados MD Referring MD: Valeriy Evangelista MD Medicines: Total IV Anesthesia (TIVA) = IV general w/o airway Complications: No immediate complications. Estimated blood loss: Minimal. Description of Procedure: After obtaining informed consent, the endoscope was passed under direct vision. Throughout the procedure, the patient's blood pressure, pulse, and oxygen saturations were monitored continuously. The Endoscope was intro duced through the mouth, and advanced to the third part of duodenum. The uppe r GI endoscopy was accomplished without difficulty. The patient tolerated th e procedure well. Findings: The examined esophagus was normal. Food (residue) was found on the greater curvature of the stomach. A benign-appearing, intrinsic moderate stenosis was found at the pyloru s. This was traversed. A TTS dilator was passed through the scope. Dilatio n with a 15-16.5-18 mm and an 18-19-20 mm pyloric balloon dilator was performed. The dilation site was examined and showed complete resolutio n of luminal narrowing. Estimated blood loss was minimal. The examined duodenum was normal. The exam was otherwise without abnormality. Estimated Blood Loss: Estimated blood loss was minimal. Post Op Diagnosis: - Normal esophagus. - Food (residue) in the stomach. - Gastric stenosis was found at the pylorus. Dilated. - Normal examined duodenum. - The examination was otherwise normal. - No specimens collected. Recommendation: - Continue present medications. Pantoprazole 40mg po qam and ranitidine 300mg po QHS - I may try Gaviscon with alginate as a barrier if above not working we ll. (Gaviscon from [place] has alginate) - Repeat upper endoscopy in 4 weeks for retreatment. - Discharge patient to home (ambulatory). - Return to primary care physician as previously scheduled. - Thank you for allowing me to help in your patient's care. Do not hesi huizar to call with any questions. Attending Participation: I personally performed the entire procedure. Roberta Rivero M.D Mat Granados MD 12/05/2017 1:13:28 PM This report has been signed electronicallyMathew MD Roberta Number of Addenda: 0 Note Initiated On: 12/05/2017 12:26 PM [email or web address]
[2017-12-05 14:09] VITALS: BP 113/79
== END 2017-12-05 14:28 | disposition home or self-care (01) ==
LOC: FSGY 10:12
PROVIDERS: ATTEND Internal Medicine Gastroenterology
PROC: 0D778ZZ Dilation of Stomach, Pylorus, Via Natural or Artificial Opening Endoscopic (ICD-10-PCS; principal; 2017-12-05 12:00)
DX: K31.1 Adult hypertrophic pyloric stenosis (principal); Z80.0 Family history of malignant neoplasm of digestive organs; Z94.4 Liver transplant status
CPT/HCPCS: 43245; C1726; J2704

== ENCOUNTER 2017-12-27 11:21 | Day surgery (SDC) | payer OTHER, MEDICAID ==
[2017-12-27] MEDS ORDERED: NS 500 ML IV ONE (12:44)
[2017-12-27] MEDS ORDERED: TRIAMCINOLONE ACETONIDE 200 MG/5 ML MDV IM ONE (12:56)
[2017-12-27] MEDS ORDERED: LR 1,000 ML IV ONE (12:58)
--- NOTE | 2017-12-27 12:59 | PDGENHP ---
History & Physical Chief Complaint: pylroic stenosis History of Present Illness: hx acquired pyloric stenosis Pertinent Past, Social, Family History: no tobacco, no alcohol. dad with esoph cancer no fhx colon cancer Relevant Physical Exam: A+Ox3. CTA. S1S2, RRR. +BS, soft nt Cardiorespiratory Assessment: class 3
[2017-12-27] MEDS ORDERED: LR 500 ML IV PRN (13:00)
[2017-12-27] MEDS ORDERED: fentaNYL 100 MCG/2 ML INJ IVP PRN (13:00)
[2017-12-27] MEDS ORDERED: ONDANSETRON 4 MG/2 ML VIAL IVP PRN (13:00)
[2017-12-27] MEDS ORDERED: NALOXONE HCL 0.4 MG/ML INJ IVP PRN (13:00)
[2017-12-27] MEDS ORDERED: PROMETHAZINE HCL 25 MG/ML INJ IVP PRN (13:00)
--- NOTE | 2017-12-27 13:00 | PDANEPAE ---
ANE Past Medical History - Cardiovascular History Hx Hypertension: No Hx Arrhythmias: No Hx Chest Pain: No Hx Coronary Artery / Peripheral Vascular Disease: No Hx CHF / Valvular Disease: No Hx Palpitations: No Cardiovascular History Comment: BP runs low 115/65 average - Pulmonary History Hx COPD: No Hx Asthma/Reactive Airway Disease: No Hx Recent Upper Respiratory Infection: No Hx Oxygen in Use at Home: No Hx Sleep Apnea: No - Neurologic History Hx Cerebrovascular Accident: No Hx Seizures: No Hx Dementia: No - Endocrine History Hx Diabetes: Yes Endocrine History Comment: IDDM - Renal History Hx Renal Disorders: No Renal History Comment: UTI 10/2017 - Liver History Hx Hepatic Disorders: Yes Hepatic History Comment: LIVER TRANSPLANT 06/14/11. FOR (SAL) - Neurological & Psychiatric Hx Hx Neurological and Psychiatric Disorders: No - Cancer History Hx Cancer: No - Congenital Disorder History Hx Congenital Disorders: No - GI History Hx Gastrointestinal Disorders: Yes Gastrointestinal History Comment: REFLUX, PYLORIC STENOSIS,GASTROPARESIS - Other Health History Other Health History: GLAUCOMA - Chronic Pain History Chronic Pain: Yes (ABD PAIN) - Surgical History Prior Surgeries: EGD ANE Review of Systems Review of Systems: ANE Patient History - Allergies Allergies/Adverse Reactions: octreotide [From Sandostatin] Allergy (Verified 11/15/17 18:30) Other-Enter Comments - Home Medications Home medications: home medication list seen and reviewed Home Medications: Canagliflozin [Invokana] 300 mg PO DAILY 11/15/17 [Last Taken 11/15/17] Exenatide Microspheres [Bydureon Pen] 2 mg SQ Q7D 11/15/17 [Last Taken 12/02/17] Insulin Degludec [Tresiba Flextouch U-100] 60 unit SQ DAILY 11/15/17 [Last Taken 12/04/17] Latanoprost 0.005% [Xalatan 0.005% (*)] 1 drops EACHEYE HS 11/15/17 [Last Taken 12/04/17] Levothyroxine [Synthroid 50 mcg (*)] 50 mcg PO DAILY06 11/15/17 [Last Taken ] Ondansetron Odt [Zofran Odt 4 mg (*)] 4 mg PO Q6 11/15/17 [Last Taken 1 Week Ago ~11/28/17] Pantoprazole Sodium [Protonix 40mg (*)] 40 mg PO DAILY 11/15/17 [Last Taken ] Ranitidine HCl 300 mg PO HS 11/15/17 [Last Taken 12/04/17] Tacrolimus [Prograf] 1 mg PO BID 11/15/17 [Last Taken 12/05/17] - NPO status NPO Status: no food or drink >8 hours - Anes Hx Anes Hx: no prior problems - Smoking Hx Smoking Status: Never smoked - Family Anes Hx Family Hx Anesthesia Complications: none ANE Physical Exam - Airway Neck exam: FROM Mallampati Score: Class 2 Mouth exam: normal dental/mouth exam - Pulmonary Pulmonary: no respiratory distress, no rales or rhonchi, clear to auscultation - Cardiovascular Cardiovascular: regular rate and rhythym, no murmur, rub, or gallop - ASA Status ASA Status: III ANE Anesthesia Plan Anesthesia Plan: GA with mask
[2017-12-27] MEDS ORDERED: PROPOFOL 200 MG/20 ML VIAL ONE (13:18)
[2017-12-27] MEDS ORDERED: TRIAMCINOLONE ACETONIDE 40 MG/ML VIAL IM ONE ×2 (13:30→13:36)
[2017-12-27] MEDS ORDERED: LIDOCAINE 2% 5 ML SDV ONE ×2 (13:49→13:51)
[2017-12-27] MEDS ORDERED: ONDANSETRON 4 MG/2 ML VIAL ONE (13:55)
--- NOTE | 2017-12-27 14:00 | GIREPORT ---
[facility] Surgical Services - Endoscopy Department Patient Name: Elma Padilla Procedure Date: 12/27/2017 1:24 PM Patient Type: Outpatient Attending MD/ ER Physician: Kenroy Moreau Procedure: Upper GI endoscopy Indications: For therapy of pyloric stenosis Providers: Mat Granados MD Referring MD: Valeriy Evangelista MD Medicines: See the Anesthesia note for documentation of the administered medicatio ns = IV general w/o airway Complications: No immediate complications. Estimated blood loss: Minimal. Description of Procedure: After obtaining informed consent, the endoscope was passed under direct vision. Throughout the procedure, the patient's blood pressure, pulse, and oxygen saturations were monitored continuously. The Endoscope was intro duced through the mouth, and advanced to the third part of duodenum. The uppe r GI endoscopy was accomplished without difficulty. The patient tolerated th e procedure well. Findings: LA Grade B (one or more mucosal breaks greater than 5 mm, not extending between the tops of two mucosal folds) esophagitis with no bleeding was found in the lower third of the esophagus. Diffuse mildly erythematous mucosa without bleeding was found in the ga stric antrum. A benign-appearing, intrinsic moderate stenosis was found at the pyloru s. This was traversed. Area was successfully injected with 2 mL of triamcinolone (80 mg/mL) for drug delivery. A TTS dilator was passed th rough the scope. Dilation with a 15-16.5-18 mm and an 18-19-20 mm pyloric bal loon dilator was performed. The dilation site was examined and showed modera te improvement in luminal narrowing. Estimated blood loss was minimal. The examined duodenum was normal. The exam was otherwise without abnormality. Estimated Blood Loss: Estimated blood loss was minimal. Post Op Diagnosis: - LA Grade B reflux esophagitis. - Erythematous mucosa in the antrum. - Gastric stenosis was found at the pylorus. Injected. Dilated. - Normal examined duodenum. - The examination was otherwise normal. - No specimens collected. Recommendation: - Use Protonix (pantoprazole) 40 mg PO daily. - Use Zantac (ranitidine) 300 mg PO at bedtime. - Continue present medications. - Discharge patient to home (ambulatory). - Repeat upper endoscopy PRN retreatment. - If this is not long lasting, then consider surgical referral and UGI series to delineate length and any structural abnormality of stricture. - Return to primary care physician as previously scheduled. - Return to endoscopist in 3 months. - Thank you for allowing me to help in your patient's care. Do not hesi huizar to call with any questions. Attending Participation: I personally performed the entire procedure. Roberta Rivero M.D Mat Granados MD 12/27/2017 1:59:42 PM This report has been signed electronicallyMathew MD Roberta Number of Addenda: 0 Note Initiated On: 12/27/2017 1:24 PM [email or web address]
--- NOTE | 2017-12-27 14:08 | POSTANESTH ---
Post Anesthetic Evaluation Cardiovascular Status: Normal, Stable, Similar to Pre-Op Cond Respiratory Status: Normal, Stable, Similar to Pre-op Cond. Level of Consciousness/Mental Status: Can Participate in Eval, Mildly Sleepy, Arousable Pain Control: Adequate, Prn Tx Ordered Nausea/Vomiting Control: Adequate, Prn Tx Ordered Complications Possibly Related to Anesthesia: None Noted
[2017-12-27 15:21] VITALS: BP 131/82
== END 2017-12-27 15:23 | disposition home or self-care (01) ==
LOC: FSGY 11:21
PROVIDERS: ATTEND Internal Medicine Gastroenterology
DX: K31.1 Adult hypertrophic pyloric stenosis (principal); K21.0 Gastro-esophageal reflux disease with esophagitis; Z94.4 Liver transplant status
CPT/HCPCS: 43236; 43249; C1726; J2405; J2704; J3301

== ENCOUNTER → 2018-01-06 | Outpatient (CLI) | payer OTHER, MEDICAID | LOC: FIMAGING 09:25 | PROVIDERS: ATTEND Internal Medicine Gastroenterology | DX: K31.1 Adult hypertrophic pyloric stenosis (principal); K30 Functional dyspepsia; K44.9 Diaphragmatic hernia without obstruction or gangrene ==